=== PATIENT | female | born 1985 | race American Indian/Alaskan Native ===

== ENCOUNTER 2017-04-03 14:01 | Inpatient (IN) | payer OTHER ==
[~2017-04-03] VITALS: Ht 165.1 cm; Wt 86.4 kg
[2017-04-03 14:16] VITALS: BP 127/76
[2017-04-03] MEDS ORDERED: PREN1TAB69 PO (14:28)
[2017-04-03] MEDS ORDERED: OMEG1CAP23 PO (14:28)
[2017-04-03] MEDS ORDERED: FENTANYL/BUPIV./NS/PF 250 ML EPIDCONT SCH ×2 (16:36→18:53)
[2017-04-03] MEDS: LACTATED RINGERS 1,000 ML IV SCH (16:36)
[2017-04-03] MEDS ORDERED: OXYTOCIN 30U/ 0.9% NaCL 500ML 500 ML IV ONE (16:36)
[2017-04-03] MEDS ORDERED: FENTANYL PF 100 MCG/2ML IVPush PRN (17:00)
[2017-04-03] MEDS ORDERED: FENTANYL PF 100 MCG/2ML IV PRN (17:00)
[2017-04-03] MEDS: LACTATED RINGERS 1,000 ML IVBOLUS PRN ×2 (17:00→17:39)
[2017-04-03] MEDS ORDERED: ONDANSETRON 2MG/ML, 2ML IVPush PRN (17:00)
[2017-04-03 17:07] LABS: HEMATOCRIT 33.8 % (34.6-47.8); HEMOGLOBIN 11.4 g/dL (11.7-16.4); WHITE BLOOD COUNT 8.7 x10^3/uL (3.4-10)
[2017-04-03] MEDS ORDERED: LIDOCAINE 1%, 20ML ONE (17:33)
[2017-04-03] MEDS ORDERED: NEWBORN KIT ONE (17:33)
[2017-04-03] MEDS ORDERED: OXYTOCIN 30U/ 0.9% NaCL 500ML 500 ML ONE (17:34)
[2017-04-03] MEDS ORDERED: MISOPROSTOL 200 MCG TABLET ONE (17:34)
[2017-04-03] MEDS ORDERED: FENTANYL/BUPIV./NS/PF 250 ML EPIDCONT ONE (17:35)
[2017-04-03] MEDS ORDERED: LACTATED RINGERS 1,000 ML IV SCH (18:53)
[2017-04-03] MEDS ORDERED: LACTATED RINGERS 1,000 ML IVBOLUS PRN (19:00)
[2017-04-03] MEDS ORDERED: OXYTOCIN 30U/ 0.9% NaCL 500ML 500 ML IV PRN (19:50)
[2017-04-04] MEDS: OXYTOCIN 30U/ 0.9% NaCL 500ML 500 ML IV SCH ×2 (00:17→10:17)
[2017-04-04] MEDS ORDERED: ONDANSETRON 2MG/ML, 2ML IV PRN (00:30)
[2017-04-04] MEDS ORDERED: ACETAMINOPHEN 325 MG TABLET PO PRN ×2 (00:30)
[2017-04-04] MEDS ORDERED: MISOPROSTOL 200 MCG TABLET PR PRN (00:30)
[2017-04-04] MEDS ORDERED: OXYcodone/APAP 5/325MG TABLET PO PRN (00:30)
[2017-04-04] MEDS ORDERED: METHYLERGONOVINE 0.2 MG/ML IM PRN (00:30)
[2017-04-04] MEDS ORDERED: IBUPROFEN 600 MG TABLET ONE (00:31)
[2017-04-04] MEDS ORDERED: OXYTOCIN 30U/ 0.9% NaCL 500ML 500 ML ONE (00:32)
[2017-04-04] MEDS: IBUPROFEN 600 MG TABLET PO PRN ×3 (00:34→16:09)
[2017-04-04] MEDS: LACTATED RINGERS 1,000 ML IV SCH (00:36)
[2017-04-04 02:35] VITALS: BP 120/63
[2017-04-04 05:45] VITALS: BP 125/72
[2017-04-04 07:15] VITALS: BP 118/75
[2017-04-04 08:02] LABS: HEMATOCRIT 30.4 % (34.6-47.8); HEMOGLOBIN 10.3 g/dL (11.7-16.4); WHITE BLOOD COUNT 10.1 x10^3/uL (3.4-10)
[2017-04-04] MEDS: DOCUSATE 100 MG CAPSULE PO PRN ×2 (10:31→20:57)
[2017-04-04] MEDS: PRENATAL VIT/IRON/FA 1 EACH TABLET PO SCH (10:31)
[2017-04-04 12:20] VITALS: BP 122/80
[2017-04-04] MEDS: OXYcodone/APAP 5/325MG TABLET PO PRN ×2 (16:10→20:57)
[2017-04-04 16:25] VITALS: BP 113/69
[2017-04-04 21:00] VITALS: BP 128/81
[2017-04-05] MEDS: IBUPROFEN 600 MG TABLET PO PRN (03:12)
[2017-04-05 08:20] VITALS: BP 127/75
[2017-04-05] MEDS: OXYcodone/APAP 5/325MG TABLET PO PRN (08:24)
[2017-04-05] MEDS: PRENATAL VIT/IRON/FA 1 EACH TABLET PO SCH (08:29)
[2017-04-05] MEDS ORDERED: OXYC-302 PO (10:44)
[2017-04-05] MEDS ORDERED: IBUP-1222 PO (10:45)
== END 2017-04-05 11:57 | disposition home or self-care (01) | DRG 775 ==
LOC: LDOP 14:01 → LDIP 16:36 → UNDOADMIN 16:41 → LDIP 16:41 → 2NW 04-04 02:23
PROVIDERS: ADMIT Obstetrics & Gynecology Gynecology; ATTEND Obstetrics & Gynecology Gynecology
PROC: 10E0XZZ Delivery of Products of Conception, External Approach (ICD-10-PCS; principal; 2017-04-04)
PROC: 3E0S3CZ (ICD-10-PCS; 2017-04-04)
PROC: 00HU33Z Insertion of Infusion Device into Spinal Canal, Percutaneous Approach (ICD-10-PCS; 2017-04-04)
DX: O77.0 Labor and delivery complicated by meconium in amniotic fluid (principal); Z37.0 Single live birth; Z3A.39 39 weeks gestation of pregnancy
CPT/HCPCS: 36415; 85025; 86850; 86900; J2590; J7120

== ENCOUNTER 2018-11-09 14:13 | Inpatient (IN) | payer OTHER ==
[~2018-11-09] VITALS: Ht 167.6 cm; Wt 87.0 kg
[~2018-11-09 14:13] MED LIST: IBUP-1222 PO; OMEG1CAP23 PO; OXYC-302 PO; PREN1TAB69 PO
[2018-11-09 14:34] LABS: MICROSCOPIC NOT IND
[2018-11-09 14:38] LABS: CREATININE,URINE RANDOM 25.2 mg/dL
[2018-11-09 14:42] LABS: BASOPHILS # (AUTO) 0.04 x10^3/uL (0-0.1); BASOPHILS % (AUTO) 1 % (0-1); EOSINOPHILS # (AUTO) 0.02 x10^3/uL (0-0.4); EOSINOPHILS % (AUTO) 0 % (1-7); LYMPHOCYTES # (AUTO) 1.41 x10^3/uL (1-3.4); LYMPHOCYTES % (AUTO) 24 % (22-44); MD NO; MEAN CORPUSCULAR HEMOGLOBIN 28.7 pg (27.0-34.8); MEAN CORPUSCULAR HGB CONC 33.3 g/dL (32.4-35.8); MEAN CORPUSCULAR VOLUME 86.3 fL (80-100); MEAN PLATELET VOLUME 7.7 fL (7.4-10.4); MONOCYTES # (AUTO) 0.33 x10^3/uL (0.2-0.8); MONOCYTES % (AUTO) 6 % (2-9); NEUTROPHILS % (AUTO) 70 % (42-75); PLATELET COUNT 400 x10^3/uL (130-400); RED BLOOD COUNT 4.01 x10^6/uL (3.82-5.3); RED CELL DISTRIBUTION WIDTH 15.2 % (9.6-15.2)
[2018-11-09 14:46] LABS: ALANINE AMINOTRANSFERASE 14 U/L (12-78); ALBUMIN 2.9 g/dL (3.4-5.0); ANION GAP 8 mmol/L (5-15); CALCIUM 8.6 mg/dL (8.5-10.1); CHLORIDE 110 mmol/L (98-107); CREATININE 0.66 mg/dL (0.55-1.02)
[2018-11-09 14:48] LABS: ALKALINE PHOSPHATASE 258 U/L (45-117); BILIRUBIN,TOTAL 0.2 mg/dL (0.2-1.0); TOTAL PROTEIN 6.9 g/dL (6.4-8.2)
[2018-11-09] MEDS ORDERED: OXYTOCIN 30U/ 0.9% NaCL 500ML 500 ML IV PRN (17:02)
[2018-11-09] MEDS ORDERED: OXYTOCIN 30U/ 0.9% NaCL 500ML 500 ML IV ONE (17:02)
[2018-11-09] MEDS ORDERED: D5%-LACTATED RINGERS 1,000 ML IV SCH (17:02)
[2018-11-09] MEDS ORDERED: OXYTOCIN 30U/ 0.9% NaCL 500ML 500 ML ONE ×2 (17:03→23:26)
[2018-11-09] MEDS ORDERED: NEWBORN KIT ONE (17:03)
[2018-11-09] MEDS ORDERED: MISOPROSTOL 200 MCG TABLET ONE (17:03)
[2018-11-09] MEDS ORDERED: LIDOCAINE 1%, 20ML ONE (17:03)
[2018-11-09] MEDS ORDERED: FENTANYL/BUPIV./NS/PF 250 ML EPIDCONT SCH ×2 (17:09→19:14)
[2018-11-09] MEDS: LACTATED RINGERS 1,000 ML IV SCH ×3 (17:18→22:20)
[2018-11-09] MEDS ORDERED: FENTANYL PF 100 MCG/2ML IV PRN (17:30)
[2018-11-09] MEDS ORDERED: CALCIUM CARBONATE 500 MG TAB.CHEW PO PRN (17:30)
[2018-11-09] MEDS ORDERED: ONDANSETRON 2MG/ML, 2ML IVPush PRN (17:30)
[2018-11-09] MEDS ORDERED: TERBUTALINE 1 MG/ML, 1ML IVPush PRN (17:30)
[2018-11-09] MEDS ORDERED: FENTANYL PF 500 MCG, BUPIVACAINE/PF 0.5%, 30ML 62.5 ML in SODIUM CHLORIDE 0.9% 177.5 ML EPIDCONT SCH (17:30)
[2018-11-09] MEDS ORDERED: FENTANYL PF 100 MCG/2ML ONE ×3 (18:23→22:12)
[2018-11-09] MEDS: FENTANYL PF 100 MCG/2ML IVPush PRN ×2 (18:25→22:17)
[2018-11-09] MEDS ORDERED: BUPIVACAINE 0.25% ONE (18:41)
[2018-11-09] MEDS ORDERED: LIDOCAINE/PF 1.5%-EPI 1:200K, 30ML ONE (18:42)
[2018-11-09] MEDS ORDERED: LACTATED RINGERS 1,000 ML IVBOLUS PRN (19:30)
[2018-11-09] MEDS ORDERED: CARBOPROST TROMETHAMINE 250 MCG/ML, 1ML IM PRN (23:00)
[2018-11-09] MEDS ORDERED: MISOPROSTOL 200 MCG TABLET PR PRN (23:00)
[2018-11-09] MEDS ORDERED: DIPH,PERTUSS(ACELL),TET VAC/PF NC IM-VACC PRN (23:00)
[2018-11-09] MEDS ORDERED: ACETAMINOPHEN 325 MG TABLET PO PRN (23:00)
[2018-11-09] MEDS ORDERED: MEASLES,MUMPS&RUBELLA VACC/PF 0.5 ML SQ PRN (23:00)
[2018-11-09] MEDS ORDERED: OXYcodone/APAP 5/325MG TABLET PO PRN (23:00)
[2018-11-09] MEDS ORDERED: RHOGAM FROM BLOOD BANK 1 NOTE EA IM/IV ONE (23:00)
[2018-11-09] MEDS ORDERED: IBUPROFEN 600 MG TABLET ONE (23:26)
[2018-11-09] MEDS ORDERED: OXYcodone/APAP 5/325MG TABLET ONE (23:26)
[2018-11-09] MEDS: OXYTOCIN 30U/ 0.9% NaCL 500ML 500 ML IV SCH (23:33)
[2018-11-09] MEDS: IBUPROFEN 600 MG TABLET PO PRN (23:35)
[2018-11-10 01:45] VITALS: BP 120/72
[2018-11-10] MEDS: LACTATED RINGERS 1,000 ML IV SCH ×3 (03:14→19:14)
[2018-11-10 05:45] VITALS: BP 126/80
[2018-11-10] MEDS: IBUPROFEN 600 MG TABLET PO PRN ×3 (06:01→18:28)
[2018-11-10] MEDS: OXYcodone/APAP 5/325MG TABLET PO PRN ×3 (06:01→20:03)
[2018-11-10 06:46] LABS: BASOPHILS # (AUTO) 0.02 x10^3/uL (0-0.1); BASOPHILS % (AUTO) 0 % (0-1); EOSINOPHILS # (AUTO) 0.02 x10^3/uL (0-0.4); EOSINOPHILS % (AUTO) 0 % (1-7); LYMPHOCYTES # (AUTO) 1.57 x10^3/uL (1-3.4); LYMPHOCYTES % (AUTO) 18 % (22-44); MD NO; MEAN CORPUSCULAR HEMOGLOBIN 28.4 pg (27.0-34.8); MEAN CORPUSCULAR HGB CONC 32.7 g/dL (32.4-35.8); MEAN CORPUSCULAR VOLUME 86.8 fL (80-100); MEAN PLATELET VOLUME 7.7 fL (7.4-10.4); MONOCYTES # (AUTO) 0.68 x10^3/uL (0.2-0.8); MONOCYTES % (AUTO) 8 % (2-9); NEUTROPHILS # (AUTO) 6.47 x10^3/uL (1.8-6.8); NEUTROPHILS % (AUTO) 74 % (42-75); PLATELET COUNT 321 x10^3/uL (130-400); RED CELL DISTRIBUTION WIDTH 14.8 % (9.6-15.2)
[2018-11-10 08:40] VITALS: BP 112/64
[2018-11-10] MEDS: DOCUSATE 100 MG CAPSULE PO PRN ×2 (08:54→20:03)
[2018-11-10] MEDS: PRENATAL VIT/IRON/FA 1 EACH TABLET PO SCH (08:54)
[2018-11-10] MEDS: OXYTOCIN 30U/ 0.9% NaCL 500ML 500 ML IV SCH ×2 (08:58→18:58)
[2018-11-10 20:15] VITALS: BP 131/84
[2018-11-11] MEDS: LACTATED RINGERS 1,000 ML IV SCH (03:14)
[2018-11-11] MEDS: OXYTOCIN 30U/ 0.9% NaCL 500ML 500 ML IV SCH (04:58)
[2018-11-11 08:00] VITALS: BP 131/87
[2018-11-11] MEDS: DOCUSATE 100 MG CAPSULE PO PRN (08:02)
[2018-11-11] MEDS: IBUPROFEN 600 MG TABLET PO PRN (08:02)
[2018-11-11] MEDS: PRENATAL VIT/IRON/FA 1 EACH TABLET PO SCH (08:02)
== END 2018-11-11 10:48 | disposition home or self-care (01) | DRG 807 ==
LOC: LDOP 14:13 → LDIP 17:04 → 2NW 11-10 01:35
PROVIDERS: ADMIT Obstetrics & Gynecology; ATTEND Obstetrics & Gynecology
PROC: 10E0XZZ Delivery of Products of Conception, External Approach (ICD-10-PCS; principal; 2018-11-09)
PROC: 0HQ9XZZ Repair Perineum Skin, External Approach (ICD-10-PCS; 2018-11-09)
PROC: 3E0R3BZ Introduction of Anesthetic Agent into Spinal Canal, Percutaneous Approach (ICD-10-PCS; 2018-11-09)
PROC: 00HU33Z Insertion of Infusion Device into Spinal Canal, Percutaneous Approach (ICD-10-PCS; 2018-11-09)
DX: O11.4 Pre-existing hypertension with pre-eclampsia, complicating childbirth (principal); Z37.0 Single live birth; O77.0 Labor and delivery complicated by meconium in amniotic fluid; O70.0 First degree perineal laceration during delivery; Z3A.39 39 weeks gestation of pregnancy
CPT/HCPCS: 36415; S0020; 80053; 81003; 82570; 82803; 84156; 84550; 85025; 86850; 86900; G0378; J3010; J3490; J2590; J7050; J7120